=== PATIENT | female | born 1965 | race Caucasian/White ===

== ENCOUNTER 2019-07-01 07:22 | Emergency (ER) | payer OTHER, SELFPAY ==
[2019-07-01 07:30] VITALS: BP 153/99; PULSE 100; RESP 16; TEMP 36.6; O2SAT 100
--- NOTE | 2019-07-01 07:57 | ED.FEMALEGU ---
HPI - Female Genitourinary General Chief complaint: Urogenital-Female Stated complaint: hematuria/htn Time Seen by Provider: 07/01/19 07:27 Source: patient and RN notes reviewed Mode of arrival: ambulatory Limitations: no limitations History of Present Illness HPI Narrative: Pt is a 53 y/o female presenting to the ED c/o hematuria. Pt reports she has been experiencing hematuria over the past few days. Pt states she has felt a UTI come on about 3 days ago, noting she also has urinary frequency. Pt states she has been experiencing HTN for about 1-2 weeks and notes she regularly takes her HTN medication without a recent change. Pt also reports subjective fever, nausea, poor appetite, or BLE swelling for months, but denies flank pain, vomiting, GAUTAM, CP, or SOB. Pertinent past history: other (None) Onset (ago): day(s) ( few ) Urinary symptoms: Frequency Associated symptoms: fever (Subjective), nausea and other (Poor appetite; Chronic BLE swelling) Related Data Home Medications Medication Instructions Recorded Confirmed hydrochlorothiazide 25 mg tablet 25 mg PO DAILY 04/06/19 04/06/19 metoprolol succinate 200 mg 200 mg PO DAILY 06/07/19 tablet,extended release 24 hr Allergies Allergy/AdvReac Type Severity Reaction Status Date / Time No Known Allergies Allergy Unverified 05/04/19 13:59 Review of Systems Review of Systems: All systems reviewed & are unremarkable except as noted in HPI and below Constitutional: Constitutional: Reports fever(s) (Subjective) and Reports poor appetite Cardiovascular: Cardiovascular: Denies chest pain Respiratory: Respiratory: Denies dyspnea Gastrointestinal: Gastrointestinal: Reports nausea and Denies vomiting Genitourinary: Genitourinary: Reports hematuria and Reports nocturia Musculoskeletal: Musculoskeletal: Denies other (Flank pain) Integumentary/Breasts: Skin/Breast: Reports swelling (Chronic BLE) Neurologic: Reports headache(s) [facility] Past Medical History Medical History (Updated 07/01/19 @ 09:29 by Al Delacruz MD) Anxiety Chronic depressive disorder Essential hypertension Personal history of multiple myeloma Surgical History Surgical History No significant past surgical history Family History Family History Mother Hypertension Social History Social History Smoking status: Never smoker Alcohol intake: current Exam Const: General: healthy appearing, no acute distress and alert Nutritional Appearance: well nourished HENMT: Mouth: Yes lip normal Eyes: Conjunctivae: conjunctivae normal Resp: Effort & Inspection: normal respiratory effort Skin: General skin exam: normal color Other: Dry; Warm Neuro: General: patient oriented x3 Speech: normal speech Extrem: Other: Full ROM Psych: Mental Status: mental status grossly normal Affect: normal affect Course Vital Signs Vital signs: Vital Signs Temperature 36.6 C 07/01/19 07:30 Pulse Rate 100 07/01/19 07:30 Respiratory Rate 16 07/01/19 07:30 Blood Pressure 153/99 H 07/01/19 07:30 Pulse Oximetry 100 07/01/19 07:30 Temperature 36.6 C 07/01/19 07:30 Pulse Rate 80 07/01/19 09:50 Respiratory Rate 16 07/01/19 09:50 Blood Pressure 146/94 H 07/01/19 09:50 Pulse Oximetry 98 07/01/19 09:50 MDM - Female Genitourinary MDM Narrative Medical decision making narrative: UA consistent with UTI. She will need follow-up with PCP for BP check. Differential Diagnosis Differential diagnosis: Likely urinary tract infection and other Medical Records Attestation: I reviewed the patient's medical records. Lab Data Attestation: I reviewed the patient's lab results. Labs: Lab Results 07/01/19 Range/Units 07:46 Urine Color Red H (Yellow) Urine Appearance Clear (Clear) Urine pH 8.0 (5.0-9.0) Ur Specific Strang 1.004
[2019-07-01 08:03] LABS: Add Urine Microscopic? YES; Appearance Urine Clear (Clear); Bacteria Urine Trace /hpf; Bilirubin Urine Negative (Negative); Blood Urine 3+ (Negative); Color Urine Red (Yellow); Glucose Urine UA Negative (Negative); Ketones Urine Negative (Negative); Leukocyte Esterase Ur 3+ LEU/UL (Negative); Mucus Urine Rare /lpf; Nitrate Urine Negative (Negative); Protein Urine 2+ mg/dL (Negative); RBC Urine 51-75 /hpf (0-2); Squamous Epithelial Cell Urine Occasional /hpf (Few); Transitional Epi Cells Urine Rare /hpf (None Seen); Urobilinogen Urine Negative mg/dL (<2.0); WBC Urine >75 /hpf
[2019-07-01 08:12] LABS: Specific Grav Ur 1.004 (1.001-1.035)
[2019-07-01] MEDS: NITROFURANTOIN MONOHYD MACROCR 100 MG CAP PO (09:16)
[2019-07-01 09:50] VITALS: BP 146/94; PULSE 80; RESP 16; O2SAT 98
== END 2019-07-01 09:50 | disposition home or self-care (01) ==
PROVIDERS: Emergency Provider Emergency Medicine; PCP Internal Medicine
DX: N30.01 Acute cystitis with hematuria (principal); I10 Essential (primary) hypertension; Z85.79 Personal history of other malignant neoplasms of lymphoid, hematopoietic and related tissues
CPT/HCPCS: 81001; 87086; 99283; A9270

== ENCOUNTER 2020-01-31 17:30 | Outpatient (CLI) | payer OTHER, SELFPAY ==
[2020-01-31 18:04] LABS: Add Urine Microscopic? NO; Appearance Urine Clear (Clear); Bilirubin Urine Negative (Negative); Blood Urine Negative (Negative); Color Urine Straw (Yellow); Glucose Urine UA Negative (Negative); Ketones Urine Negative (Negative); Leukocyte Esterase Ur Negative LEU/UL (Negative); Nitrate Urine Negative (Negative); Protein Urine Negative (Negative); Specific Grav Ur 1.008 (1.001-1.035); Urobilinogen Urine Negative mg/dL (<2.0)
== END 2020-01-31 17:31 | disposition home or self-care (01) ==
PROVIDERS: PCP Internal Medicine; Visit Provider Internal Medicine
DX: R39.9 Unspecified symptoms and signs involving the genitourinary system (principal)
CPT/HCPCS: 81003

== ENCOUNTER 2022-02-15 09:19 | Emergency (ER) | payer OTHER, BC, SELFPAY ==
[2022-02-15 09:26] VITALS: BP 204/110; PULSE 80; RESP 16; TEMP 37.3; O2SAT 99
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
[2022-02-15] MEDS: TETANUS,DIPHTHERIA,AC PERTUSSIS ADULT (0.5 ML) BOOSTRIX IM (09:59)
[2022-02-15 10:19] VITALS: BP 192/104
== END 2022-02-15 10:19 | disposition home or self-care (01) ==
PROVIDERS: Emergency Provider Nurse Practitioner Family
DX: L03.116 Cellulitis of left lower limb (principal); I10 Essential (primary) hypertension; Z85.79 Personal history of other malignant neoplasms of lymphoid, hematopoietic and related tissues; Z23 Encounter for immunization
CPT/HCPCS: 90471; 90715; 99213; G0463

== ENCOUNTER 2023-03-13 10:12 | Outpatient (CLI) | payer BC, SELFPAY ==
[2023-03-13 11:52] LABS: Alanine Aminotransferase 19 U/L (6-35); Albumin Level 4.5 g/dL (3.5-5.1); Alkaline Phosphatase 67 U/L (38-126); Anion Gap 8 mmol/L (8-16); Aspartate Amino Transferase 51 U/L (14-36); Bilirubin,Total 0.7 mg/dL (0.2-1.3); Blood Urea Nitrogen 12 mg/dL (7-17); Calcium 9.8 mg/dL (8.4-10.2); Carbon Dioxide 32 mmol/L (22-30); Chloride 99 mmol/L (98-107); Cholesterol 239 mg/dL (0-200); Estimated Glomerular Filt Rate > 60; Glucose 99 mg/dL (65-110); HDL Direct 60 mg/dL; Potassium 3.3 mmol/L (3.4-5.0); Sodium 139 mmol/L (137-145); Triglycerides 130 mg/dL (<150)
[2023-03-13 12:03] LABS: LDL Cholesterol Direct 107 mg/dL
== END 2023-03-13 10:13 | disposition home or self-care (01) ==
LOC: ANHGOSHLAB 10:13
PROVIDERS: PCP Family Medicine; Visit Provider Family Medicine
DX: E78.2 Mixed hyperlipidemia (principal); Z13.228 Encounter for screening for other metabolic disorders
CPT/HCPCS: 36415; 80053; 80061

== ENCOUNTER 2024-05-04 11:37 | Outpatient (CLI) | payer OTHER, SELFPAY ==
[2024-05-04 19:20] LABS: Alanine Aminotransferase 18 U/L (6-35); Albumin Level 4.8 g/dL (3.5-5.1); Alkaline Phosphatase 71 U/L (38-126); Anion Gap 6 mmol/L (4-12); Aspartate Amino Transferase 37 U/L (14-36); Bilirubin,Total 0.7 mg/dL (0.2-1.3); Blood Urea Nitrogen 12 mg/dL (7-17); Calcium 9.8 mg/dL (8.4-10.2); Carbon Dioxide 32 mmol/L (22-30); Chloride 102 mmol/L (98-107); Cholesterol 235 mg/dL (0-200); Estimated Glomerular Filt Rate > 60; Glucose 93 mg/dL (65-110); HDL Direct 52 mg/dL; Potassium 3.5 mmol/L (3.4-5.0); Sodium 140 mmol/L (137-145); Triglycerides 158 mg/dL (<150)
[2024-05-04 19:25] LABS: Thyroid Stimulating Hormone Reflex < 0.015 uIU/mL (0.465-4.68)
[2024-05-04 19:31] LABS: LDL Cholesterol Direct 109 mg/dL
[2024-05-04 20:44] LABS: Free T4 Free Thyroxine Reflex 1.14 ng/dL (0.78-2.19)
[2024-05-04 21:32] LABS: Total Triiodothyronine (T3) 1.88 NG/ML (0.97-1.69)
== END 2024-05-04 11:38 | disposition home or self-care (01) ==
LOC: ANHGOSHLAB 11:38
PROVIDERS: PCP Family Medicine; Visit Provider Family Medicine
DX: Z13.29 Encounter for screening for other suspected endocrine disorder (principal); Z13.220 Encounter for screening for lipoid disorders; Z13.228 Encounter for screening for other metabolic disorders
CPT/HCPCS: 36415; 80053; 80061; 84439; 84443; 84480

== ENCOUNTER 2025-01-12 09:48 | Outpatient (CLI) | payer OTHER, SELFPAY ==
--- OUTSIDE RECORDS SUMMARY | 2025-01-12 09:53 | XMS_ITS | Clinical Summary ---
Author Organization [facility] Address [address] [place] [address] Care Team Providers Care Lumber Sticker Name Role Phone Andreas Frazier MD Primary Care Provider [phone] Allergies No known active allergies Medications benzonatate (TESSALON) 100 mg capsuleIndicati ons:Cough Take 1 capsule (100 mg total) by mouth every 8 (eight) hours 21 capsule 1 Active Additional Information Patient not taking.Reported on 12/22/2021 lisinopriL (PRINIVIL,ZESTR IL) 40 mg tablet 2 Active hydroCHLOROthia zide (HYDRODIURIL) 25 mg tablet 2 Active Active Problems No known active problems Surgical History Surgery Date Site/Laterality Comments TONSILLECTOMY Medical History Medical History Date Comments Hypertension Depression Anxiety Insomnia Multiple myeloma Social History Tobacco Use Types Packs/Day Years Used Date Smoking Tobacco: Never Smokeless Tobacco: Never Alcohol Use Standard Drinks/Week Comments Yes 0 (1 standard drink = 0.6 oz pur e alcohol) socially Personal Safety Answer Date Recorded Getting School Help Needed Not on file 07/31 Comments Unknown Sex and Gender Information Value Date Recorded Sex Assigned at Not on file Legal Sex Female 2:30 PM [employer] Gender Identity Not on file Sexual Orientation Not on file Obstetrics History Last Filed Vital Signs Vital Sign Reading Time Taken Comments Blood Pressure 158/82 12/22/2021 8:59 AM CDT Pulse 96 12/22/2021 8:31 AM CDT Temperature 36.8 C (98.3 F) 12/22/2021 8:31 AM CDT Respiratory Rate 18 12/22/2021 8:31 AM CDT Oxygen Saturation 97% 12/22/2021 8:3 1 AM CDT Inhaled Oxygen Concentration - - Weight 79.4 kg (175 lb) 12/22/2021 8:31 AM CDT Per pt, as she refused to weigh Height 170.2 cm (5' 7) 12/22/2021 8:31 AM CDT Body Mass Index 27.41 12/22/2021 8:31 AM CDT Plan of Treatment Not on file Insurance [facility] Care Teams Lumber Sticker Relationship Specialty Start Date End Date Andreas Frazier MD [address] [place] [address] PCP - General 10/03/20
[2025-01-12 10:10] LABS: Hematocrit 41.8 % (37.0-47.0); Hemoglobin 14.4 g/dL (12.0-15.0); Immature Granulocyte Percent A 0.2 % (0-0.5); Lymphocytes Absolute Auto 1.24 K/mm3 (0.9-3.2); Mean Corpuscular HGB Conc 34.4 g/dl (32-36); Mean Corpuscular Hemoglobin 32.3 pg (26-34); Mean Corpuscular Volume 93.7 fl (80-100); Nucleated Red Blood Cells Absolute Auto 0.000 K/mm3 (0.0-0.012); Nucleated Red Blood Cells Perc 0.0 % (0.0-0.2); Platelet Count Result 188 k/mm3 (150-375); Red Blood Count 4.46 M/mm3 (4.2-5.4); White Blood Count 5.4 K/mm3 (4.5-10.0)
[2025-01-12 10:34] LABS: Alanine Aminotransferase 21 U/L (6-35); Albumin Level 4.9 g/dL (3.5-5.1); Alkaline Phosphatase 63 U/L (38-126); Anion Gap 11 mmol/L (4-12); Aspartate Amino Transferase 36 U/L (14-36); Bilirubin,Total 0.6 mg/dL (0.2-1.3); Blood Urea Nitrogen 14 mg/dL (7-17); Calcium 9.9 mg/dL (8.4-10.2); Carbon Dioxide 27 mmol/L (22-30); Chloride 102 mmol/L (98-107); Cholesterol 246 mg/dL (0-200); Estimated Glomerular Filt Rate > 60; Glucose 100 mg/dL (65-110); HDL Direct 64 mg/dL; Potassium 4.0 mmol/L (3.4-5.0); Sodium 140 mmol/L (137-145); Total Protein 8.6 g/dL (6.3-8.2); Triglycerides 134 mg/dL (<150)
[2025-01-12 11:10] LABS: Thyroid Stimulating Hormone 0.762 uIU/mL (0.465-4.680)
[2025-01-12 11:29] LABS: Vitamin B12 904.0 pg/mL (239-931)
== END 2025-01-12 09:49 | disposition home or self-care (01) ==
LOC: ANHLAB 09:50
PROVIDERS: PCP Family Medicine; Visit Provider Family Medicine
DX: F32.9 Major depressive disorder, single episode, unspecified (principal); I10 Essential (primary) hypertension; E78.2 Mixed hyperlipidemia; C90.01 Multiple myeloma in remission; Z00.00 Encounter for general adult medical examination without abnormal findings; Z13.29 Encounter for screening for other suspected endocrine disorder
CPT/HCPCS: 36415; 80053; 80061; 82172; 82306; 82607; 84443; 85025